=== PATIENT | female | born 1965 | race Caucasian/White ===

== ENCOUNTER 2021-08-17 09:41 | Emergency (ER) | payer BC, SELFPAY ==
[2021-08-17] VITALS (10 sets, daily range): BP systolic 116–132; BP diastolic 68–82; PULSE 74–87; RESP 14–18; TEMP 36.6–36.9; O2SAT 98–100; BMI 20.5
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
--- NOTE | 2021-08-17 10:42 | XR_ITS ---
PROCEDURE: XR FINGER LT MIN 2V CLINICAL INDICATION: concern for osteo COMPARISON: No exams were available for comparison FINDINGS: There is a faint calcific density along the lateral aspect the interphalangeal joint of thumb. This could be related to some dystrophic periarticular calcification or even a small avulsion fracture. Soft tissue swelling is present involving the distal aspect of the thumb. There is some questionable minimal cortical erosion involving the of the distal phalanx of the thumb as seen on the AP view. No other significant anomalies are evident. IMPRESSION: 1. Faint calcific density along the lateral aspect of the interphalangeal joint of the thumb which could be related to dystrophic calcification or small avulsion. 2. There is questionable faint cortical erosion at the tuft of the distal phalanx laterally. Follow-up is suggested. Osteomyelitis is not excluded Dictated by: Bert Arroyo MD 08/17/2021 12:10 Bert Arroyo MD in [place] 08/17/2021 12:10
--- NOTE | 2021-08-17 11:05 | HMH.EDGENADL ---
ED Disposition Clinical Impression: Infected puncture wound of finger Qualifiers: Encounter type: initial encounter Qualified Code(s): S61.239A - Puncture wound without foreign body of unspecified finger without damage to nail, initial encounter Disposition: Home, Self-Care Condition on Discharge: Good Additional Instructions: Follow up with hand orthopedic clinic, antibiotics as directed. Return to ED with new, worsening, concerning symptoms. Apply warm compresses/soaks 3 times daily to the left hand/thumb. Okay to take Tylenol/Motrin for mild pain, take oxycodone as directed for severe pain. Contact Hand clinic at [phone] to make a clinic appointment Prescriptions: Clindamycin HCl 450 mg PO QID 10 Days #30 cap Transmission Status: Received by [id number] Oxycodone HCl [Oxycodone 5mg tab (IR)] 5 mg PO Q8 PRN 2 Days #6 tab PRN Reason: Severe Pain Prescription Printed Referrals: Provider,Referral, MD [Primary Care Provider] - - Critical Care Critical Care Time: No Attestation: On 08/17/21, the high probability of a clinically significant, sudden or life threatening deterioration of the following system(s) required my full and direct attention, intervention and personal management. The time I documented below is in addition to time spent performing reported procedures but includes the following listed in this critical care notation. Medical Decision Making - Medical Records Medical records reviewed: Yes: I reviewed the patient's medical records. - Diego Inquiry Pt receiving controlled substance: No Vital Signs: 08/17/21 09:42 08/17/21 09:48 08/17/21 09:57 Temperature 98.5 F 98.3 F 98.3 F Temperature Source Oral Oral Oral Pulse Rate Pulse Rate [Right] 87 74 74 Respiratory Rate 16 16 16 Blood Pressure Blood Pressure [Right Arm] 122/70 122/70 122/70 Blood Pressure Mean [Right Arm] 87 87 87 Blood Pressure Source Blood Pressure Source [Right Arm] Automatic Cuff Automatic Cuff Blood Pressure Position Blood Pressure Position [Right Arm] Sitting Sitting 02 Sat by Pulse Oximetry 98 98 98 Oxygen Delivery Method Room Air Room Air 08/17/21 11:05 08/17/21 12:05 08/17/21 13:05 Temperature Temperature Source Pulse Rate 75 82 81 Pulse Rate [Right] Respiratory Rate 16 16 16 Blood Pressure 121/82 119/74 123/75 Blood Pressure [Right Arm] Blood Pressure Mean [Right Arm] Blood Pressure Source Blood Pressure Source [Right Arm] Blood Pressure Position Blood Pressure Position [Right Arm] 02 Sat by Pulse Oximetry 99 100 98 Oxygen Delivery Method 08/17/21 14:15 08/17/21 15:05 08/17/21 16:15 Temperature Temperature Source Pulse Rate 87 74 81 Pulse Rate [Right] Respiratory Rate 17 14 18 Blood Pressure 118/74 128/77 131/80 Blood Pressure [Right Arm] Blood Pressure Mean [Right Arm] Blood Pressure Source Blood Pressure Source [Right Arm] Blood Pressure Position Blood Pressure Position [Right Arm] 02 Sat by Pulse Oximetry 99 99 100 Oxygen Delivery Method 08/17/21 18:21 Temperature 98.5 F Temperature Source Oral Pulse Rate 80 Pulse Rate [Right] Respiratory Rate 16 Blood Pressure 116/80 Blood Pressure [Right Arm] Blood Pressure Mean [Right Arm] Blood Pressure Source Automatic Cuff Blood Pressure Source [Right Arm] Blood Pressure Position Sitting Blood Pressure Position [Right Arm] 02 Sat by Pulse Oximetry Oxygen Delivery Method Room Air - Lab Data Lab Results 08/17/21 13:34: WBC 10.9 H, RBC 5.10, Hgb 14.6, Hct 43.3, MCV 85.0, MCH 28.7, MCHC 33.8, RDW 12.3, Plt Count 503 H, MPV 6.9 L, Neut % (Auto) 68.7, Lymph % (Auto) 24.9, Prentiss % (Auto) 4.1, Eos % (Auto) 1.5, Baso % (Auto) 0.8, Neut # (Auto) 7.5, Lymph # (Auto) 2.7, Prentiss # (Auto) 0.5, Eos # (Auto) 0.2, Baso # (Auto) 0.1, ESR 29 08/17/21 13:34: Sodium 136, Potassium 3.9, Chloride 99, Carbon Dioxide 27, Anion Gap 13.9, BUN 16, Creatinine 0.80, Estimat
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
[2021-08-17 13:43] LABS: Basophils # 0.1 K/mm3 (0-0.2); Basophils % 0.8 % (0.1-2.0); Eosinophils # 0.2 K/mm3 (0.0-0.4); Eosinophils % 1.5 % (0.1-12.0); Hematocrit 43.3 % (37.0-47.0); Hemoglobin 14.6 g/dL (12.2-16.2); Lymphocytes # 2.7 K/mm3 (0.7-4.5); Lymphocytes % 24.9 % (10-50); Mean Corpuscular HGB Conc 33.8 g/dL (31.8-35.4); Mean Corpuscular Hemoglobin 28.7 pg (27.0-31.2); Mean Platelet Volume 6.9 fl (7.4-10.4); Monocytes # 0.5 K/mm3 (0.1-1.0); Monocytes % 4.1 % (1.7-9.3); Neutrophils # 7.5 K/mm3 (1.8-7.8); Neutrophils % 68.7 % (37.0-80.0); Platelet Count 503 K/mm3 (142-424); Red Cell Distribution Width 12.3 % (11.5-17.5); White Blood Count 10.9 K/mm3 (4.8-10.8)
[2021-08-17 13:46] LABS: Chloride 99 mmol/L (98-107); Sodium 136 mmol/L (136-145)
[2021-08-17 13:47] LABS: Potassium 3.9 mmoL/L (3.5-5.1)
[2021-08-17 13:49] LABS: Blood Urea Nitrogen 16 mg/dl (7-17); Creatinine Clearance Estimated 68 mL/min (50-200); Estimated Glomerular Filt Rate 74 ml/min (>60); GFR (African American) 90 ML/MIN (>60)
[2021-08-17 13:50] LABS: Anion Gap 13.9 mEq/L (5-15); Calcium 9.8 mg/dl (8.4-10.2); Carbon Dioxide 27 mmol/L (22.0-30.0); Glucose 113 mg/dl (74-100)
[2021-08-17 13:55] LABS: C-Reactive Protein 9.3 mg/L (0-4)
[2021-08-17 14:19] LABS: Erythrocyte Sedimentation Rate 29 mm/hr (0-30)
--- NOTE | 2021-08-17 14:50 | PC.NURSE ---
patient to xray
--- NOTE | 2021-08-17 15:28 | PC.NURSE ---
Called rad to check on report status, advised she would check and let me know. Updated pt on POC.
--- NOTE | 2021-08-17 16:06 | PC.NURSE ---
Spoke with rad and they advised pt report had been assigned to [facility] but it had not been read yet. She was going to call and check status. Updated pt. No new needs at this time
--- NOTE | 2021-08-17 16:15 | PC.NURSE ---
Notified MD CT results back. No evidence of osteo. Called and ordered pt lunch tray.
--- NOTE | 2021-08-17 17:34 | PC.NURSE ---
Pt updated on delay in care. No new needs at this time
== END 2021-08-17 18:22 | disposition home or self-care (01) ==
LOC: UTC 09:51 → ER 10:28
PROVIDERS: Emergency Provider Emergency Medicine
DX: S61.032A Puncture wound without foreign body of left thumb without damage to nail, initial encounter (principal); L08.9 Local infection of the skin and subcutaneous tissue, unspecified; B95.61 Methicillin susceptible Staphylococcus aureus infection as the cause of diseases classified elsewhere; Z88.0 Allergy status to penicillin
CPT/HCPCS: 73140; 73201; 80048; 85025; 85651; 86140; 87040; 87070; 87077; 87186; 87205; 99283; Q9967